=== PATIENT | male | born 1945 | race Two or more races ===

== ENCOUNTER 2018-11-19 04:35 | Observation (INO) | payer MEDICARE, OTHER ==
[~2018-11-19] VITALS: Ht 172.7 cm; Wt 69.0 kg
[2018-11-19] MEDS ORDERED: ALBUTEROL/IPRATROPIUM 2.5MG/0.5MG, 3 ML ONE (05:12)
--- NOTE | 2018-11-19 05:25 | NUR ---
pt received breathing tx and given meds pt is [facility]
[2018-11-19] MEDS ORDERED: ALBUTEROL/IPRATROPIUM 2.5MG/0.5MG, 3 ML NPPB SCH (05:30)
[2018-11-19] MEDS ORDERED: SODIUM CHLORIDE FLUSH 10ML SYR IVF ONE (05:30)
[2018-11-19 05:36] LABS: INTERNATIONAL NORMALIZED RATIO 0.97 (0.93-1.1); PROTHROMBIN TIME 10.2 Seconds (9.6-11.5)
[2018-11-19 05:37] LABS: ALANINE AMINOTRANSFERASE 23 U/L (12-78); ALBUMIN 3.5 g/dL (3.4-5.0); ANION GAP 6 mmol/L (5-15); CALCIUM 8.8 mg/dL (8.5-10.1); CHLORIDE 109 mmol/L (98-107); CREATININE 0.73 mg/dL (0.7-1.3)
[2018-11-19 05:42] LABS: ALKALINE PHOSPHATASE 66 U/L (45-117); BILIRUBIN,TOTAL 0.3 mg/dL (0.2-1.0); TOTAL PROTEIN 8.2 g/dL (6.4-8.2); TROPONIN I < 0.015 ng/mL (0.000-0.045)
[2018-11-19 05:44] LABS: MEAN CORPUSCULAR HEMOGLOBIN 22.4 pg (27.5-34.5); MEAN CORPUSCULAR HGB CONC 31.4 g/dL (33.2-36.2); MEAN CORPUSCULAR VOLUME 71.3 fL (81-97); MEAN PLATELET VOLUME 9.7 fL (7.4-10.4); PLATELET COUNT 301 x10^3/uL (130-400); RED BLOOD COUNT 5.47 x10^6/uL (4.38-5.82); RED CELL DISTRIBUTION WIDTH 26.3 % (9.4-14.8)
[2018-11-19 06:18] LABS: MD MORPH REVIEW ONLY
[2018-11-19 06:19] LABS: ANISOCYTOSIS 2+; BASOPHILS # (AUTO) 0.09 x10^3/uL (0-0.1); BASOPHILS % (AUTO) 1 % (0-1); EOSINOPHILS # (AUTO) 0.22 x10^3/uL (0-0.4); EOSINOPHILS % (AUTO) 3 % (1-7); LYMPHOCYTES # (AUTO) 1.66 x10^3/uL (1-3.4); LYMPHOCYTES % (AUTO) 19 % (22-44); MICROCYTOSIS 1+; MONOCYTES # (AUTO) 0.62 x10^3/uL (0.2-0.8); MONOCYTES % (AUTO) 7 % (2-9); NEUTROPHILS # (AUTO) 6.09 x10^3/uL (1.8-6.8); NEUTROPHILS % (AUTO) 70 % (42-75)
[2018-11-19 06:20] LABS: <PLATELET ESTIMATE> ADEQUATE; <PLT MORPHOLOGY> NORMAL PLT MORPH; HYPOCHROMIA 1+; POLYCHROMASIA 1+; TARGET CELLS 1+
--- NOTE | 2018-11-19 07:05 | NUR ---
I AM ASSUMING CARE OF THIS PT FROM VIRY (KELLY) AT THIS TIME. SBAR REPORT WAS EXCHANGED AT THE BEDSIDE.
--- NOTE | 2018-11-19 07:59 | NUR ---
VERBAL SBAR REPORT WAS EXCHANGED WITH JANE GARCIA) ON THE FLOOR FR [facility]. WE WILL BEGIN TO PREPARE FOR TRANSPORT AT THIS TIME.
[2018-11-19 08:30] VITALS: BP 190/99
[2018-11-19] MEDS ORDERED: ALBUTEROL/IPRATROPIUM 2.5MG/0.5MG, 3 ML HHN PRN (09:00)
[2018-11-19] MEDS ORDERED: POLYETHYLENE GLYCOL 17 GM PACKET PO PRN (09:00)
[2018-11-19] MEDS ORDERED: GUAIFENESIN/DM 200-20MG, 10ML UDC PO PRN (09:00)
[2018-11-19] MEDS ORDERED: BISACODYL 10 MG SUPP PR PRN (09:00)
[2018-11-19] MEDS ORDERED: hydrALAzine 20 MG/ML, 1ML IVPush PRN (09:00)
[2018-11-19] MEDS ORDERED: ONDANSETRON ODT 4 MG PO PRN (09:00)
[2018-11-19] MEDS ORDERED: DOCUSATE 100 MG CAPSULE PO PRN (09:00)
[2018-11-19] MEDS ORDERED: LIDODERM 5% PATCH TD PRN (09:00)
[2018-11-19] MEDS ORDERED: methylPREDNISolone SOD SUCC 125 MG/2 ML ONE (09:37)
[2018-11-19] MEDS ORDERED: HEPARIN 5,000 UNITS/ML, 1ML ONE (09:37)
[2018-11-19] MEDS: HEPARIN 5,000 UNITS/ML, 1ML SQ SCH ×2 (09:43→17:53)
[2018-11-19] MEDS: methylPREDNISolone SOD SUCC 125 MG/2 ML IVPush SCH ×2 (09:43→17:53)
[2018-11-19] MEDS: ACETAMINOPHEN 325 MG TABLET PO PRN ×3 (09:51→21:36)
[2018-11-19 10:07] LABS: TROPONIN I < 0.015 ng/mL (0.000-0.045)
[2018-11-19 10:18] LABS: HEMOGLOBIN A1C 5.4 % (4.2-6.3)
[2018-11-19] MEDS ORDERED: TIOT4MIS5 INH (10:21)
[2018-11-19] MEDS ORDERED: BUPR150T6 PO (10:21)
[2018-11-19] MEDS ORDERED: SILD20TA2 PO (10:21)
[2018-11-19] MEDS ORDERED: ALBU90AE INH (10:21)
[2018-11-19] MEDS ORDERED: OMEP-110 PO (10:21)
[2018-11-19] MEDS ORDERED: SIMV20TA3 PO (10:21)
[2018-11-19] MEDS ORDERED: FLUT1DIS5 IH (10:21)
[2018-11-19] MEDS ORDERED: CLOP75TA PO (10:21)
[2018-11-19] MEDS ORDERED: MEMA10TA PO (10:21)
[2018-11-19] MEDS ORDERED: DULO30CA2 PO (10:21)
[2018-11-19] MEDS ORDERED: MOME30SO2 NAS (10:21)
[2018-11-19] MEDS ORDERED: METO-93 PO (10:21)
[2018-11-19] MEDS ORDERED: LISI40TA PO (10:21)
[2018-11-19 13:29] VITALS: BP 113/63
[2018-11-19 14:51] LABS: TROPONIN I < 0.015 ng/mL (0.000-0.045)
[2018-11-19] MEDS: ALBUTEROL/IPRATROPIUM 2.5MG/0.5MG, 3 ML NPPB SCH ×2 (15:20→19:19)
[2018-11-19 19:08] VITALS: BP 147/78
[2018-11-19] MEDS: ADVAIR IH SCH (21:00)
[2018-11-19] MEDS: MOMETASONE FUROATE 50 MCG NAS SCH (21:00)
[2018-11-19] MEDS: SIMVASTATIN 10 MG TABLET PO SCH (21:36)
[2018-11-19] MEDS: MEMANTINE 10MG TABLET PO SCH (21:36)
[2018-11-20] MEDS: ALBUTEROL/IPRATROPIUM 2.5MG/0.5MG, 3 ML NPPB SCH ×4 (00:31→15:30)
[2018-11-20 01:41] VITALS: BP 147/84
[2018-11-20] MEDS: methylPREDNISolone SOD SUCC 125 MG/2 ML IVPush SCH ×2 (02:00→10:57)
[2018-11-20] MEDS: HEPARIN 5,000 UNITS/ML, 1ML SQ SCH ×2 (02:00→10:57)
[2018-11-20] MEDS: ACETAMINOPHEN 325 MG TABLET PO PRN (02:09)
[2018-11-20] MEDS ORDERED: OMEPRAZOLE 20 MG CAPSULE.DR PO SCH (07:30)
[2018-11-20 07:47] LABS: ANION GAP 6 mmol/L (5-15); CALCIUM 8.5 mg/dL (8.5-10.1); CHLORIDE 105 mmol/L (98-107)
[2018-11-20 07:49] LABS: CREATININE 0.77 mg/dL (0.7-1.3)
[2018-11-20 08:45] LABS: MEAN CORPUSCULAR HGB CONC 31.1 g/dL (33.2-36.2); MEAN CORPUSCULAR VOLUME 70.5 fL (81-97); RED BLOOD COUNT 4.97 x10^6/uL (4.38-5.82); RED CELL DISTRIBUTION WIDTH 25.8 % (9.4-14.8)
[2018-11-20 08:46] LABS: MEAN PLATELET VOLUME 10.1 fL (7.4-10.4); PLATELET COUNT 265 x10^3/uL (130-400)
[2018-11-20 08:47] LABS: MD MORPH REVIEW ONLY
[2018-11-20 08:48] LABS: BASOPHILS % (AUTO) 0 % (0-1); EOSINOPHILS % (AUTO) 0 % (1-7); LYMPHOCYTES # (AUTO) 0.57 x10^3/uL (1-3.4); LYMPHOCYTES % (AUTO) 7 % (22-44); MONOCYTES # (AUTO) 0.12 x10^3/uL (0.2-0.8); MONOCYTES % (AUTO) 1 % (2-9); NEUTROPHILS # (AUTO) 8.07 x10^3/uL (1.8-6.8); NEUTROPHILS % (AUTO) 92 % (42-75)
[2018-11-20 08:49] LABS: <PLATELET ESTIMATE> ADEQUATE; ANISOCYTOSIS 2+; GIANT PLATELETS 1+; HYPOCHROMIA 2+; LARGE PLATELETS 1+; MICROCYTOSIS 1+; TARGET CELLS 1+
[2018-11-20 08:52] VITALS: BP 122/67
[2018-11-20] MEDS ORDERED: TIOTROPIUM BROMIDE INH SCH (09:00)
[2018-11-20] MEDS ORDERED: CLOPIDOGREL 75 MG TABLET PO SCH (09:00)
[2018-11-20] MEDS ORDERED: ALBUTEROL SULFATE 2.5 MG/3 ML NEB SCH (09:00)
[2018-11-20] MEDS ORDERED: LISINOPRIL 20 MG TABLET PO SCH (09:00)
[2018-11-20] MEDS ORDERED: BUPROPION HCL 150 MG HOMEMEDPO SCH (09:00)
[2018-11-20] MEDS ORDERED: METOPROLOL SUCCINATE 50 MG TAB.ER.24H PO SCH (09:00)
[2018-11-20] MEDS ORDERED: DULOXETINE 30 MG CAPSULE.DR PO SCH (09:00)
[2018-11-20] MEDS: MEMANTINE 10MG TABLET PO SCH (09:12)
[2018-11-20] MEDS: SIMVASTATIN 10 MG TABLET PO SCH (09:12)
[2018-11-20] MEDS: ADVAIR IH SCH (09:13)
[2018-11-20] MEDS: MOMETASONE FUROATE 50 MCG NAS SCH (09:13)
[2018-11-20 15:05] VITALS: BP 136/69
== END 2018-11-20 17:54 | disposition left against medical advice (07) ==
LOC: ED 06:47 → EDIP 06:48 → INTOOBSV 06:48 → ED 06:50 → 3NE 08:28
PROVIDERS: ADMIT Internal Medicine; ATTEND Internal Medicine
DX: J44.1 Chronic obstructive pulmonary disease with (acute) exacerbation (principal); I25.10 Atherosclerotic heart disease of native coronary artery without angina pectoris; I10 Essential (primary) hypertension; E78.5 Hyperlipidemia, unspecified; F32.9 Major depressive disorder, single episode, unspecified; I48.91 Unspecified atrial fibrillation; J96.01 Acute respiratory failure with hypoxia; F17.200 Nicotine dependence, unspecified, uncomplicated; Z95.1 Presence of aortocoronary bypass graft; Z99.81 Dependence on supplemental oxygen
CPT/HCPCS: 36415; 71045; 71046; 80048; 80053; 83036; 83880; 84484; 85025; 85379; 85610; 85730; 93005; 94640; 96372; 96374; 96376; 99284; G0378; J1644; J2930; J7512; J7620